=== PATIENT | female | born 1955 | race Caucasian/White ===

== ENCOUNTER 2020-08-27 22:03 | Emergency (ER) | payer MEDICARE, OTHER ==
[2020-08-28 02:25] LABS: HEMOGLOBIN 14.7 gm/dl (12.3-15.3); RED BLOOD COUNT 5.19 M/UL (4.00-5.10); WHITE BLOOD COUNT 12.7 K/UL (4.5-11.0)
== END 2020-08-28 11:12 | disposition short-term general hospital (02) ==
LOC: ER1 22:03
PROVIDERS: Emergency Medicine
DX: T83.192A Other mechanical complication of indwelling ureteral stent, initial encounter (principal); N13.2 Hydronephrosis with renal and ureteral calculous obstruction; Z87.442 Personal history of urinary calculi; Z20.822 Contact with and (suspected) exposure to COVID-19
CPT/HCPCS: 80053; 81001; 83690; 85025; 93005; 96374; 99285; J2270; J2550; U0002

== ENCOUNTER 2020-10-25 12:26 | Emergency (ER) | payer MEDICARE, OTHER ==
[2020-10-25 13:35] LABS: RED BLOOD COUNT 4.76 M/UL (4.00-5.10); WHITE BLOOD COUNT 10.9 K/UL (4.5-11.0)
[2020-10-25 14:01] LABS: BUN/CREATININE RATIO 15 (0-10)
[2020-10-25] MEDS ORDERED: HYDROCODON-ACE1 EAC4 PO (21:52)
== END 2020-10-25 22:25 | disposition home or self-care (01) ==
LOC: ER1 12:26
PROVIDERS: Student in an Organized Health Care Education/Training Program
DX: N13.2 Hydronephrosis with renal and ureteral calculous obstruction (principal); I25.10 Atherosclerotic heart disease of native coronary artery without angina pectoris; I10 Essential (primary) hypertension; Z88.5 Allergy status to narcotic agent; Z88.2 Allergy status to sulfonamides; Z91.041 Radiographic dye allergy status; Z87.442 Personal history of urinary calculi
CPT/HCPCS: 80053; 82550; 82553; 83605; 83690; 83735; 83874; 84100; 84484; 85025; 93005; 96374; 96375; 99284; J1885; J2405; J7030